=== PATIENT | male | born 1940 | race Caucasian/White ===

== ENCOUNTER 2022-09-07 13:06 | Inpatient (IN) | payer OTHER ==
[2022-09-07] MEDS ORDERED: SODIUM CHLORIDE 0.9% 500 ML INFUS.BAG IV ONE (14:10)
[2022-09-07] MEDS ORDERED: FUROSEMIDE 40 MG/4 ML INJECTABLE VIAL IVPUSH ONE (14:27)
[2022-09-07 14:39] LABS: VENOUS BASE EXCESS -2.3 mmol/L (-2-2); VENOUS O2 SATURATION 49.9 % (70-80); VENOUS PCO2 47.6 mmHg (38-52); VENOUS PH 7.319 (7.310-7.410)
[2022-09-07 14:41] LABS: BASO % 0.1 % (0-2.0); EOS % 0.1 % (0-4.5); HEMATOCRIT 27.6 % (35.4-49); HEMOGLOBIN 8.2 GM/dL (11.7-16.9); LYMPH % 3.3 % (8-40); MCH 20.4 pg (25.7-33.7); MCHC 29.9 g/dl (32.0-35.9); MEAN CELL VOLUME 68.4 fl (80-96); MEAN PLT VOLUME 9.7 fl (7.5-11.1); MONO % 10.8 % (3.8-10.2); NEUT % 85.7 % (42.8-82.8); PLATELET COUNT 121 10^3/uL (134-434); RBC 4.03 M/mm3 (4.00-5.60); RDW 23.6 % (11.9-15.9); WHITE BLOOD COUNT 8.4 K/mm3 (4.0-10.0)
[2022-09-07] MEDS ORDERED: FUROSEMIDE 40 MG/4 ML INJECTABLE VIAL ONE (14:42)
[2022-09-07 14:48] LABS: INR 1.31 (0.83-1.09); PROTHROMBIN TIME (PATIENT) 15.2 SEC (9.7-13.0)
[2022-09-07 14:51] LABS: ACTIVATED PTT 34.2 SECONDS (25.2-36.5)
[2022-09-07 15:02] LABS: ANISOCYTOSIS 2+; MACROCYTOSIS 1+
[2022-09-07 15:07] LABS: CHLORIDE 101 mmol/L (98-107); SODIUM 134 mmol/L (136-145)
[2022-09-07 15:09] LABS: ALBUMIN 3.2 g/dl (3.4-5.0); ANION GAP 9 MMOL/L (8-16); CALCIUM 8.5 mg/dL (8.5-10.1); CO2 23 mmol/L (21-32); GLUCOSE,RANDOM 361 mg/dL (74-106); MAGNESIUM 3.2 mg/dL (1.8-2.4)
[2022-09-07 15:12] LABS: CREATININE 4.7 mg/dL (0.55-1.3); SGOT/AST 32 U/L (15-37); SGPT/ALT 31 U/L (13-61)
[2022-09-07 15:13] LABS: BILIRUBIN,TOTAL 0.7 mg/dL (0.2-1)
[2022-09-07 15:14] LABS: ALK PHOS 183 U/L (45-117)
[2022-09-07 15:18] LABS: BLOOD UREA NITROGEN 139.4 mg/dL (7-18)
[2022-09-07 17:43] LABS: EPI CELLS 22 /uL (0-25.1); HYALINE CASTS 1 /uL (0-3.1); URINE APPEARANCE CLEAR; URINE BACTERIA 15 /uL (0-1359); URINE BILIRUBIN NEGATIVE (NEGATIVE); URINE COLOR YELLOW; URINE GLUCOSE (UA) NEGATIVE (NEGATIVE); URINE KETONE NEGATIVE (NEGATIVE); URINE LEUK ESTERASE 1+ (NEGATIVE); URINE NITRITE NEGATIVE (NEGATIVE); URINE PROTEIN 1+ (NEGATIVE); URINE RBC 31 /uL (0-23.9); URINE UROBILINOGEN 0.2 mg/dL (0.2-1.0); URINE WBC 156 /uL (0-25.8)
[2022-09-07] MEDS ORDERED: FUROSEMIDE 100 MG/10 ML INJECTABLE VIAL IVPB ONE (22:00)
[2022-09-07] MEDS: ROSUVASTATIN CA 10 MG TABLET PO SCH (22:12)
[2022-09-07] MEDS: APIXABAN 2.5 MG TABLET PO SCH (22:12)
[2022-09-07] MEDS: hydrALAZINE HCL 10 MG TABLET PO SCH (22:12)
[2022-09-07] MEDS: INSULIN SLIDING SCALE (NOVOLOG) 1 VIAL SQ SCH (22:15)
[2022-09-08] MEDS: FUROSEMIDE 100 MG/10 ML INJECTABLE VIAL IVPB SCH ×2 (06:34→13:47)
[2022-09-08] MEDS: INSULIN SLIDING SCALE (NOVOLOG) 1 VIAL SQ SCH ×4 (06:34→21:43)
[2022-09-08 07:14] LABS: BASO % 0.1 % (0-2.0); EOS % 0.4 % (0-4.5); HEMATOCRIT 27.4 % (35.4-49); HEMOGLOBIN 8.3 GM/dL (11.7-16.9); LYMPH % 3.8 % (8-40); MCH 20.7 pg (25.7-33.7); MCHC 30.5 g/dl (32.0-35.9); MEAN CELL VOLUME 67.9 fl (80-96); MEAN PLT VOLUME 9.3 fl (7.5-11.1); MONO % 11.5 % (3.8-10.2); NEUT % 84.2 % (42.8-82.8); PLATELET COUNT 119 10^3/uL (134-434); RBC 4.03 M/mm3 (4.00-5.60); RDW 23.7 % (11.9-15.9); WHITE BLOOD COUNT 9.9 K/mm3 (4.0-10.0)
[2022-09-08 07:36] LABS: CHLORIDE 106 mmol/L (98-107); SODIUM 143 mmol/L (136-145)
[2022-09-08 07:39] LABS: ALBUMIN 3.2 g/dl (3.4-5.0); ANION GAP 9 MMOL/L (8-16); CALCIUM 9.2 mg/dL (8.5-10.1); CO2 28 mmol/L (21-32); GLUCOSE,RANDOM 209 mg/dL (74-106)
[2022-09-08 07:43] LABS: CREATININE 4.4 mg/dL (0.55-1.3); SGOT/AST 20 U/L (15-37); SGPT/ALT 32 U/L (13-61)
[2022-09-08 07:44] LABS: BILIRUBIN,TOTAL 0.8 mg/dL (0.2-1); TOT PROT 7.2 g/dl (6.4-8.2)
[2022-09-08 07:45] LABS: ALK PHOS 187 U/L (45-117)
[2022-09-08 07:52] LABS: BLOOD UREA NITROGEN 128.4 mg/dL (7-18)
[2022-09-08] MEDS: TAMSULOSIN HCL 0.4 MG CAP PO SCH (08:25)
[2022-09-08] MEDS: amLODIPine BESYLATE 5 MG TABLET (FP) PO SCH (09:55)
[2022-09-08] MEDS: hydrALAZINE HCL 10 MG TABLET PO SCH ×2 (09:55→21:45)
[2022-09-08] MEDS: APIXABAN 2.5 MG TABLET PO SCH ×2 (09:55→21:45)
[2022-09-08] MEDS: metoPROLOL SUCCINATE 25 MG TAB.SR.24H (FP) PO SCH (09:55)
[2022-09-08] MEDS: BUDESONIDE/FORMETEROL FUMARATE 160/4.5 mcg INHALER IH SCH ×3 (09:56→21:45)
[2022-09-08 12:01] LABS: CHOLESTEROL 71 mg/dL (50-200); TRIGLYCERIDES 59 mg/dL (0-150)
[2022-09-08 12:02] LABS: LDL CHOLESTEROL (ONLY SJRH) 24 mg/dL (5-100)
[2022-09-08 12:03] LABS: HDL CHOLESTEROL 43 mg/dL (40-60)
[2022-09-08 12:05] LABS: N-TERMINAL BNP 1917.4 pg/ml (5-450)
[2022-09-08] MEDS ORDERED: POTASSIUM CHLORIDE ORAL LIQUID 20 MEQ/15 ML PO ONE (13:30)
[2022-09-08] MEDS: KCL 10 MEQ IVPB 10 MEQ/100 ML INFUS.BAG IVPB SCH ×3 (13:47→16:26)
[2022-09-08 15:37] LABS: CHLORIDE 106 mmol/L (98-107); SODIUM 141 mmol/L (136-145)
[2022-09-08 15:39] LABS: ALBUMIN 2.9 g/dl (3.4-5.0); CALCIUM 8.5 mg/dL (8.5-10.1)
[2022-09-08 15:41] LABS: ANION GAP 7 MMOL/L (8-16); CO2 28 mmol/L (21-32); GLUCOSE,RANDOM 262 mg/dL (74-106)
[2022-09-08 15:44] LABS: BILIRUBIN,TOTAL 0.7 mg/dL (0.2-1); CREATININE 4.1 mg/dL (0.55-1.3); PHOSPHOROUS 5.2 mg/dL (2.5-4.9); SGOT/AST 21 U/L (15-37); SGPT/ALT 27 U/L (13-61); TOT PROT 6.7 g/dl (6.4-8.2)
[2022-09-08 15:45] LABS: ALK PHOS 177 U/L (45-117)
[2022-09-08 15:46] LABS: BLOOD UREA NITROGEN 121.2 mg/dL (7-18)
[2022-09-08] MEDS: ROSUVASTATIN CA 10 MG TABLET PO SCH (21:45)
[2022-09-09] MEDS: FUROSEMIDE 100 MG/10 ML INJECTABLE VIAL IVPB SCH (06:33)
[2022-09-09] MEDS: INSULIN SLIDING SCALE (NOVOLOG) 1 VIAL SQ SCH ×4 (06:48→21:46)
[2022-09-09 07:14] LABS: HEMATOCRIT 28.3 % (35.4-49); HEMOGLOBIN 8.4 GM/dL (11.7-16.9); MCH 20.4 pg (25.7-33.7); MCHC 29.9 g/dl (32.0-35.9); MEAN CELL VOLUME 68.3 fl (80-96); MEAN PLT VOLUME 9.8 fl (7.5-11.1); PLATELET COUNT 125 10^3/uL (134-434); RBC 4.14 M/mm3 (4.00-5.60); RDW 23.9 % (11.9-15.9); WHITE BLOOD COUNT 12.1 K/mm3 (4.0-10.0)
[2022-09-09 07:33] LABS: CHLORIDE 109 mmol/L (98-107); SODIUM 148 mmol/L (136-145)
[2022-09-09 07:36] LABS: ANION GAP 9 MMOL/L (8-16); CO2 29 mmol/L (21-32); GLUCOSE,RANDOM 179 mg/dL (74-106)
[2022-09-09 07:39] LABS: CREATININE 3.8 mg/dL (0.55-1.3); SGOT/AST 15 U/L (15-37); SGPT/ALT 28 U/L (13-61)
[2022-09-09 07:41] LABS: BILIRUBIN,TOTAL 0.9 mg/dL (0.2-1)
[2022-09-09 07:42] LABS: ALK PHOS 184 U/L (45-117)
[2022-09-09] MEDS ORDERED: POTASSIUM CHLORIDE ORAL LIQUID 20 MEQ/15 ML PO ONE (09:01)
[2022-09-09] MEDS: TAMSULOSIN HCL 0.4 MG CAP PO SCH (09:19)
[2022-09-09] MEDS: amLODIPine BESYLATE 5 MG TABLET (FP) PO SCH (10:27)
[2022-09-09] MEDS: APIXABAN 2.5 MG TABLET PO SCH ×2 (10:27→21:41)
[2022-09-09] MEDS: metoPROLOL SUCCINATE 25 MG TAB.SR.24H (FP) PO SCH (10:27)
[2022-09-09] MEDS: hydrALAZINE HCL 10 MG TABLET PO SCH ×2 (10:27→21:41)
[2022-09-09] MEDS: BUDESONIDE/FORMETEROL FUMARATE 160/4.5 mcg INHALER IH SCH ×2 (10:28→21:42)
[2022-09-09] MEDS: CEFTRIAXONE 1 GM in DEXTROSE 5%-WATER - 50 ML IVPB SCH (13:31)
[2022-09-09] MEDS: ACETAMINOPHEN 325 MG TABLET (FP) PO PRN (14:15)
[2022-09-09] MEDS: ROSUVASTATIN CA 10 MG TABLET PO SCH (21:41)
[2022-09-09] MEDS: DOCUSATE SODIUM 100 MG CAPSULE (FP) PO SCH (21:42)
[2022-09-10] MEDS: ACETAMINOPHEN 325 MG TABLET (FP) PO PRN ×3 (00:09→18:09)
[2022-09-10] MEDS: INSULIN SLIDING SCALE (NOVOLOG) 1 VIAL SQ SCH ×4 (06:41→21:24)
[2022-09-10 06:56] LABS: CHLORIDE 109 mmol/L (98-107); SODIUM 147 mmol/L (136-145)
[2022-09-10 07:01] LABS: ALBUMIN 2.6 g/dl (3.4-5.0); ANION GAP 9 MMOL/L (8-16); CALCIUM 8.9 mg/dL (8.5-10.1); CO2 30 mmol/L (21-32); GLUCOSE,RANDOM 190 mg/dL (74-106)
[2022-09-10 07:05] LABS: CREATININE 3.4 mg/dL (0.55-1.3); SGOT/AST 18 U/L (15-37); SGPT/ALT 25 U/L (13-61)
[2022-09-10 07:07] LABS: ALK PHOS 183 U/L (45-117); BILIRUBIN,TOTAL 0.9 mg/dL (0.2-1); TOT PROT 6.6 g/dl (6.4-8.2)
[2022-09-10 07:30] LABS: BLOOD UREA NITROGEN 118.8 mg/dL (7-18)
[2022-09-10 07:44] LABS: BASO % 0.4 % (0-2.0); EOS % 1.5 % (0-4.5); HEMATOCRIT 27.4 % (35.4-49); HEMOGLOBIN 8.2 GM/dL (11.7-16.9); LYMPH % 5.5 % (8-40); MCH 20.3 pg (25.7-33.7); MCHC 29.8 g/dl (32.0-35.9); MEAN CELL VOLUME 68.1 fl (80-96); MEAN PLT VOLUME 9.2 fl (7.5-11.1); MONO % 13.4 % (3.8-10.2); NEUT % 79.2 % (42.8-82.8); PLATELET COUNT 122 10^3/uL (134-434); RBC 4.03 M/mm3 (4.00-5.60); RDW 23.5 % (11.9-15.9); WHITE BLOOD COUNT 12.8 K/mm3 (4.0-10.0)
[2022-09-10] MEDS ORDERED: POTASSIUM CHLORIDE ORAL LIQUID 20 MEQ/15 ML PO ONE (07:45)
[2022-09-10] MEDS: TAMSULOSIN HCL 0.4 MG CAP PO SCH (08:14)
[2022-09-10] MEDS: CEFTRIAXONE 1 GM in DEXTROSE 5%-WATER - 50 ML IVPB SCH (09:43)
[2022-09-10] MEDS: FUROSEMIDE 40 MG/4 ML INJECTABLE VIAL IVPUSH SCH (09:48)
[2022-09-10] MEDS: amLODIPine BESYLATE 5 MG TABLET (FP) PO SCH (09:49)
[2022-09-10] MEDS: APIXABAN 2.5 MG TABLET PO SCH ×2 (09:49→21:22)
[2022-09-10] MEDS: hydrALAZINE HCL 10 MG TABLET PO SCH ×2 (09:49→21:22)
[2022-09-10] MEDS: metoPROLOL SUCCINATE 25 MG TAB.SR.24H (FP) PO SCH (09:50)
[2022-09-10] MEDS: BUDESONIDE/FORMETEROL FUMARATE 160/4.5 mcg INHALER IH SCH ×2 (09:50→21:27)
[2022-09-10] MEDS ORDERED: FUROSEMIDE 100 MG/10 ML INJECTABLE VIAL IVPB SCH (10:00)
[2022-09-10] MEDS: ROSUVASTATIN CA 10 MG TABLET PO SCH (21:22)
[2022-09-10] MEDS: DOCUSATE SODIUM 100 MG CAPSULE (FP) PO SCH (21:22)
[2022-09-10 22:06] LABS: ANTIGLOMERULAR BASEMENT MEN.AB <0.2 units (0.0-0.9)
[2022-09-10] MEDS: LIDOCAINE 5% TOPICAL PATCH TP SCH (22:26)
[2022-09-10] MEDS: LIDOCAINE PATCH REMOVAL MC SCH (22:29)
[2022-09-11] MEDS: INSULIN SLIDING SCALE (NOVOLOG) 1 VIAL SQ SCH ×4 (06:26→22:05)
[2022-09-11 08:59] LABS: CALCIUM 8.6 mg/dL (8.5-10.1)
[2022-09-11 09:00] LABS: ALBUMIN 2.5 g/dl (3.4-5.0); BLOOD UREA NITROGEN 102.7 mg/dL (7-18)
[2022-09-11 09:03] LABS: CREATININE 3.1 mg/dL (0.55-1.3)
[2022-09-11 09:04] LABS: BILIRUBIN,TOTAL 0.8 mg/dL (0.2-1)
[2022-09-11 09:05] LABS: TOT PROT 6.5 g/dl (6.4-8.2)
[2022-09-11] MEDS: APIXABAN 2.5 MG TABLET PO SCH ×2 (09:53→22:00)
[2022-09-11] MEDS: hydrALAZINE HCL 10 MG TABLET PO SCH ×2 (09:53→22:00)
[2022-09-11] MEDS: TAMSULOSIN HCL 0.4 MG CAP PO SCH (09:53)
[2022-09-11] MEDS: LIDOCAINE 5% TOPICAL PATCH TP SCH (09:54)
[2022-09-11] MEDS: amLODIPine BESYLATE 5 MG TABLET (FP) PO SCH (09:54)
[2022-09-11] MEDS: BUDESONIDE/FORMETEROL FUMARATE 160/4.5 mcg INHALER IH SCH ×2 (09:54→22:05)
[2022-09-11] MEDS: metoPROLOL SUCCINATE 25 MG TAB.SR.24H (FP) PO SCH (09:54)
[2022-09-11] MEDS: FUROSEMIDE 40 MG/4 ML INJECTABLE VIAL IVPUSH SCH (09:54)
[2022-09-11] MEDS: CEFTRIAXONE 1 GM in DEXTROSE 5%-WATER - 50 ML IVPB SCH (09:54)
[2022-09-11] MEDS ORDERED: EPOETIN ALFA-EPBX 10,000 UNIT/ML VIAL SQ ONE (13:00)
[2022-09-11] MEDS ORDERED: POTASSIUM CHLORIDE ORAL LIQUID 20 MEQ/15 ML PO ONE (16:16)
[2022-09-11] MEDS ORDERED: metoPROLOL SUCCINATE 25 MG TAB.SR.24H (FP) PO ONE (16:17)
[2022-09-11] MEDS: DOCUSATE SODIUM 100 MG CAPSULE (FP) PO SCH (22:00)
[2022-09-11] MEDS: ROSUVASTATIN CA 10 MG TABLET PO SCH (22:00)
[2022-09-11] MEDS: LIDOCAINE PATCH REMOVAL MC SCH (22:01)
[2022-09-11 23:59] VITALS: BMI 26.9
[2022-09-12] MEDS: INSULIN SLIDING SCALE (NOVOLOG) 1 VIAL SQ SCH ×4 (06:09→21:50)
[2022-09-12] MEDS: TAMSULOSIN HCL 0.4 MG CAP PO SCH (08:27)
[2022-09-12 08:43] LABS: BASO % 0.3 % (0-2.0); EOS % 2.3 % (0-4.5); HEMATOCRIT 26.9 % (35.4-49); HEMOGLOBIN 8.2 GM/dL (11.7-16.9); LYMPH % 8.5 % (8-40); MCH 20.9 pg (25.7-33.7); MCHC 30.5 g/dl (32.0-35.9); MEAN CELL VOLUME 68.4 fl (80-96); MEAN PLT VOLUME 9.6 fl (7.5-11.1); MONO % 10.5 % (3.8-10.2); NEUT % 78.4 % (42.8-82.8); PLATELET COUNT 139 10^3/uL (134-434); RBC 3.93 M/mm3 (4.00-5.60); RDW 22.3 % (11.9-15.9); WHITE BLOOD COUNT 9.6 K/mm3 (4.0-10.0)
[2022-09-12] MEDS: FUROSEMIDE 40 MG/4 ML INJECTABLE VIAL IVPUSH SCH (09:16)
[2022-09-12] MEDS: amLODIPine BESYLATE 5 MG TABLET (FP) PO SCH (09:16)
[2022-09-12] MEDS: hydrALAZINE HCL 10 MG TABLET PO SCH ×2 (09:16→21:48)
[2022-09-12] MEDS: APIXABAN 2.5 MG TABLET PO SCH ×2 (09:16→21:48)
[2022-09-12] MEDS: LIDOCAINE 5% TOPICAL PATCH TP SCH (09:16)
[2022-09-12] MEDS: CEFTRIAXONE 1 GM in DEXTROSE 5%-WATER - 50 ML IVPB SCH (09:16)
[2022-09-12] MEDS: BUDESONIDE/FORMETEROL FUMARATE 160/4.5 mcg INHALER IH SCH ×2 (09:17→21:51)
[2022-09-12 09:18] LABS: ALBUMIN 2.3 g/dl (3.4-5.0); CALCIUM 8.7 mg/dL (8.5-10.1)
[2022-09-12 09:20] LABS: BLOOD UREA NITROGEN 98.6 mg/dL (7-18); MAGNESIUM 2.4 mg/dL (1.8-2.4)
[2022-09-12 09:23] LABS: BILIRUBIN,TOTAL 0.5 mg/dL (0.2-1); TOT PROT 6.3 g/dl (6.4-8.2)
[2022-09-12 09:29] LABS: ANISOCYTOSIS 2+; MACROCYTOSIS 0
[2022-09-12] MEDS: ROSUVASTATIN CA 10 MG TABLET PO SCH (21:48)
[2022-09-12] MEDS: DOCUSATE SODIUM 100 MG CAPSULE (FP) PO SCH (21:48)
[2022-09-12] MEDS: LIDOCAINE PATCH REMOVAL MC SCH (21:48)
[2022-09-13] MEDS: INSULIN SLIDING SCALE (NOVOLOG) 1 VIAL SQ SCH ×4 (06:22→22:24)
[2022-09-13] MEDS: TAMSULOSIN HCL 0.4 MG CAP PO SCH (08:52)
[2022-09-13] MEDS: LIDOCAINE 5% TOPICAL PATCH TP SCH (09:30)
[2022-09-13] MEDS: BUDESONIDE/FORMETEROL FUMARATE 160/4.5 mcg INHALER IH SCH ×2 (09:30→22:20)
[2022-09-13] MEDS: CEFTRIAXONE 1 GM in DEXTROSE 5%-WATER - 50 ML IVPB SCH (09:30)
[2022-09-13] MEDS: APIXABAN 2.5 MG TABLET PO SCH ×2 (09:30→22:16)
[2022-09-13] MEDS: hydrALAZINE HCL 10 MG TABLET PO SCH ×2 (09:30→22:16)
[2022-09-13] MEDS: FUROSEMIDE 40 MG/4 ML INJECTABLE VIAL IVPUSH SCH (09:30)
[2022-09-13] MEDS ORDERED: metoPROLOL SUCCINATE 25 MG TAB.SR.24H (FP) PO ONE (12:30)
[2022-09-13] MEDS: ACETAMINOPHEN 325 MG TABLET (FP) PO PRN (16:07)
[2022-09-13] MEDS: DOCUSATE SODIUM 100 MG CAPSULE (FP) PO SCH (22:16)
[2022-09-13] MEDS: ROSUVASTATIN CA 10 MG TABLET PO SCH (22:16)
[2022-09-13] MEDS: LIDOCAINE PATCH REMOVAL MC SCH (22:32)
[2022-09-14] MEDS: INSULIN SLIDING SCALE (NOVOLOG) 1 VIAL SQ SCH ×3 (06:36→17:56)
[2022-09-14 08:02] LABS: BASO % 0.4 % (0-2.0); EOS % 1.1 % (0-4.5); HEMATOCRIT 28.9 % (35.4-49); HEMOGLOBIN 8.7 GM/dL (11.7-16.9); LYMPH % 7.7 % (8-40); MEAN CELL VOLUME 66.8 fl (80-96); MEAN PLT VOLUME 9.3 fl (7.5-11.1); MONO % 10.5 % (3.8-10.2); NEUT % 80.3 % (42.8-82.8); PLATELET COUNT 136 10^3/uL (134-434); RBC 4.32 M/mm3 (4.00-5.60); RDW 22.5 % (11.9-15.9)
[2022-09-14 08:39] LABS: BILIRUBIN,TOTAL 0.4 mg/dL (0.2-1)
[2022-09-14 08:49] LABS: ALBUMIN 2.4 g/dl (3.4-5.0); BLOOD UREA NITROGEN 89.3 mg/dL (7-18); CALCIUM 8.6 mg/dL (8.5-10.1)
[2022-09-14 08:52] LABS: CREATININE 2.9 mg/dL (0.55-1.3)
[2022-09-14 08:54] LABS: TOT PROT 6.6 g/dl (6.4-8.2)
[2022-09-14] MEDS ORDERED: REGADENOSON 0.4 MG/5 ML PRE-FILLED SYRINGE IVPUSH ONE ×2 (08:55→09:45)
[2022-09-14] MEDS ORDERED: metoPROLOL SUCCINATE 25 MG TAB.SR.24H (FP) PO SCH (10:00)
[2022-09-14] MEDS: APIXABAN 2.5 MG TABLET PO SCH (12:32)
[2022-09-14] MEDS: hydrALAZINE HCL 10 MG TABLET PO SCH (12:32)
[2022-09-14] MEDS: TAMSULOSIN HCL 0.4 MG CAP PO SCH (12:32)
[2022-09-14] MEDS: FUROSEMIDE 40 MG/4 ML INJECTABLE VIAL IVPUSH SCH (12:33)
[2022-09-14] MEDS: LIDOCAINE 5% TOPICAL PATCH TP SCH (12:39)
[2022-09-14] MEDS: BUDESONIDE/FORMETEROL FUMARATE 160/4.5 mcg INHALER IH SCH (12:40)
[2022-09-14 12:43] VITALS: RESP 18
[2022-09-14 15:14] VITALS: BP 120/66; PULSE 86; TEMP 97.8
[2022-09-14 17:08] LABS: ATYPICAL pANCA <1:20 titer (Neg:<1:20); C-ANCA <1:20 titer (Neg:<1:20)
== END 2022-09-14 17:56 | disposition home or self-care (01) | DRG 291 ==
LOC: JER 13:06 → JERBED 17:50 → J4W 21:54
PROVIDERS: ADMIT Internal Medicine; ATTEND Internal Medicine
DX: I13.0 Hypertensive heart and chronic kidney disease with heart failure and stage 1 through stage 4 chronic kidney disease, or unspecified chronic kidney disease (principal); G93.41 Metabolic encephalopathy; I50.33 Acute on chronic diastolic (congestive) heart failure; J90 Pleural effusion, not elsewhere classified; N17.9 Acute kidney failure, unspecified; R18.8 Other ascites; E87.0 Hyperosmolality and hypernatremia; I48.91 Unspecified atrial fibrillation; N18.9 Chronic kidney disease, unspecified; E87.70 Fluid overload, unspecified; I45.10 Unspecified right bundle-branch block; I27.20 Pulmonary hypertension, unspecified; J44.9 Chronic obstructive pulmonary disease, unspecified; D64.9 Anemia, unspecified; E11.42 Type 2 diabetes mellitus with diabetic polyneuropathy; D69.6 Thrombocytopenia, unspecified; R09.02 Hypoxemia; R00.0 Tachycardia, unspecified; R41.82 Altered mental status, unspecified; D69.59 Other secondary thrombocytopenia; Z86.73 Personal history of transient ischemic attack (TIA), and cerebral infarction without residual deficits
CPT/HCPCS: 0241U-QW; 36415; 70450-TC; 71045-TC-FY; 71250-TC; 72125-TC; 74176-TC; 76604; 76775-TC; 78452-TC; 80053; 80061; 81003; 82010; 82550; 82570; 82607; 82803; 82962; 83036; 83516; 83520; 83605; 83735; 83880; 84100; 84155; 84156; 84165; 84443; 84484; 85025; 85027; 85610; 85730; 86038; 86256; 86593; 86780; 87086; 87186; 93005; 93010; 93017; 93306-TC; 93308; 97116-GP; 97162-GP; 99285-25; A9502; J2785; Q5106